=== PATIENT | male | born 1955 | race African-American/Black ===

== ENCOUNTER 2022-06-30 16:37 | Inpatient (IN) | payer OTHER ==
[2022-06-30 18:28] LABS: VENOUS BASE EXCESS 6.3 mmol/L (-2-2); VENOUS O2 SATURATION 86.3 % (70-80); VENOUS PCO2 47.5 mmHg (38-52); VENOUS PH 7.439 (7.310-7.410)
[2022-06-30 19:04] LABS: BASO % 1.2 % (0-2.0); EOS % 2.6 % (0-4.5); HEMATOCRIT 32.1 % (35.4-49); HEMOGLOBIN 10.5 GM/dL (11.7-16.9); LYMPH % 9.8 % (8-40); MCH 27.4 pg (25.7-33.7); MCHC 32.6 g/dl (32.0-35.9); MEAN CELL VOLUME 84.1 fl (80-96); MEAN PLT VOLUME 8.3 fl (7.5-11.1); MONO % 11.6 % (3.8-10.2); NEUT % 74.8 % (42.8-82.8); PLATELET COUNT 209 10^3/uL (134-434); RBC 3.82 M/mm3 (4.00-5.60); WHITE BLOOD COUNT 5.9 K/mm3 (4.0-10.0)
[2022-06-30 19:20] LABS: ACTIVATED PTT 40.3 SECONDS (25.2-36.5); INR 1.2 (0.83-1.09); PROTHROMBIN TIME (PATIENT) 13.9 SEC (9.7-13.0)
[2022-06-30 19:33] LABS: ALBUMIN 3.3 g/dl (3.4-5.0); CALCIUM 8.8 mg/dL (8.5-10.1)
[2022-06-30 19:34] LABS: BLOOD UREA NITROGEN 52.9 mg/dL (7-18)
[2022-06-30 19:38] LABS: BILIRUBIN,TOTAL 0.4 mg/dL (0.2-1); TOT PROT 7.9 g/dl (6.4-8.2)
[2022-07-01] MEDS ORDERED: hydrALAZINE HCL 20 MG/ML VIAL IVPUSH ONE (02:04)
[2022-07-01] MEDS ORDERED: hydrALAZINE HCL 20 MG/ML VIAL ONE (02:06)
[2022-07-01 07:35] VITALS: BMI 25.5
[2022-07-01] MEDS ORDERED: SODIUM CHLORIDE 250 ML IV PRN (10:42)
[2022-07-01] MEDS ORDERED: ACETAMINOPHEN 325 MG TABLET (FP) PO PRN (11:44)
[2022-07-01 12:29] LABS: EOS % 4.5 % (0-4.5); HEMATOCRIT 34.5 % (35.4-49); HEMOGLOBIN 11.4 GM/dL (11.7-16.9); LYMPH % 9.1 % (8-40); MCH 27.7 pg (25.7-33.7); MCHC 33.1 g/dl (32.0-35.9); MEAN CELL VOLUME 83.7 fl (80-96); MEAN PLT VOLUME 8.4 fl (7.5-11.1); MONO % 9.1 % (3.8-10.2); NEUT % 76.3 % (42.8-82.8); PLATELET COUNT 182 10^3/uL (134-434); RBC 4.13 M/mm3 (4.00-5.60); RDW 17.4 % (11.9-15.9); WHITE BLOOD COUNT 5.8 K/mm3 (4.0-10.0)
[2022-07-01 12:34] LABS: CHLORIDE 96 mmol/L (98-107); SODIUM 134 mmol/L (136-145)
[2022-07-01 12:37] LABS: CALCIUM 9.2 mg/dL (8.5-10.1)
[2022-07-01 12:38] LABS: ALBUMIN 3.4 g/dl (3.4-5.0); ANION GAP 6 MMOL/L (8-16); BLOOD UREA NITROGEN 61.4 mg/dL (7-18); CO2 32 mmol/L (21-32); GLUCOSE,RANDOM 88 mg/dL (74-106)
[2022-07-01 12:41] LABS: CHOLESTEROL 103 mg/dL (50-200); SGOT/AST 32 U/L (15-37); SGPT/ALT 43 U/L (13-61); TRIGLYCERIDES 87 mg/dL (0-150)
[2022-07-01 12:42] LABS: BILIRUBIN,TOTAL 0.5 mg/dL (0.2-1); LDL CHOLESTEROL (ONLY SJRH) 42 mg/dL (5-100); TOT PROT 8.2 g/dl (6.4-8.2)
[2022-07-01 12:43] LABS: HDL CHOLESTEROL 34 mg/dL (40-60)
[2022-07-01 12:44] LABS: ALK PHOS 124 U/L (45-117)
[2022-07-01 12:47] LABS: CREATININE 7.6 mg/dL (0.55-1.3)
[2022-07-01] MEDS: NIFEdipine E.R. 90 MG TABLET PO SCH (13:19)
[2022-07-01] MEDS: PANTOPRAZOLE 40 MG TABLET PO SCH (13:20)
[2022-07-01] MEDS: CARVEDILOL 25 MG TABLET (FP) PO SCH ×2 (13:20→21:23)
[2022-07-01] MEDS: DOCUSATE SODIUM 100 MG CAPSULE (FP) PO SCH ×2 (13:20→18:45)
[2022-07-01] MEDS: hydrALAZINE HCL 25 MG TABLET (FP) PO SCH ×3 (13:54→21:22)
[2022-07-01] MEDS ORDERED: SIMETHICONE 80 MG TAB.CHEW (FP) PO PRN (14:00)
[2022-07-01] MEDS ORDERED: SERTRALINE HCL 25 MG TABLET (FP) PO ONE (18:28)
[2022-07-01 21:17] VITALS: RESP 20
[2022-07-01] MEDS ORDERED: DOCUSATE SODIUM 100 MG CAPSULE (FP) PO SCH (21:55)
[2022-07-01] MEDS ORDERED: OLANZapine 10 MG TABLET PO SCH (22:00)
[2022-07-01] MEDS ORDERED: MELATONIN 1 MG TABLET PO SCH (22:00)
[2022-07-01] MEDS ORDERED: ATORVASTATIN CA 80 MG TABLET (FP) PO SCH (22:00)
[2022-07-01] MEDS ORDERED: GABAPENTIN 100 MG CAPSULE PO SCH (22:00)
[2022-07-01] MEDS ORDERED: LIDOCAINE PATCH REMOVAL MC SCH (22:00)
[2022-07-02] MEDS: DOCUSATE SODIUM 100 MG CAPSULE (FP) PO SCH ×2 (06:20→13:35)
[2022-07-02] MEDS: hydrALAZINE HCL 25 MG TABLET (FP) PO SCH ×2 (06:20→13:35)
[2022-07-02] MEDS ORDERED: LEVOTHYROXINE NA 100 MCG TABLET (FP) PO SCH (07:00)
[2022-07-02] MEDS: NIFEdipine E.R. 90 MG TABLET PO SCH (09:54)
[2022-07-02] MEDS: CARVEDILOL 25 MG TABLET (FP) PO SCH (09:54)
[2022-07-02] MEDS: PANTOPRAZOLE 40 MG TABLET PO SCH (09:54)
[2022-07-02] MEDS ORDERED: LEVOTHYROXINE NA 75 MCG TABLET (FP) PO SCH (10:00)
[2022-07-02] MEDS ORDERED: SERTRALINE HCL 25 MG TABLET (FP) PO SCH (10:00)
[2022-07-02] MEDS ORDERED: LIDOCAINE 5% TOPICAL PATCH TP SCH (10:00)
[2022-07-02 14:26] VITALS: BP 117/58; PULSE 59; TEMP 97.9
[2022-07-03] MEDS ORDERED: ASPIRIN 81 MG CHEWABLE TABLETS PO SCH (10:00)
== END 2022-07-02 15:46 | DRG 682 ==
LOC: JER 16:37 → JERBED 20:07 → J4W 07-01 06:28
PROVIDERS: ADMIT Internal Medicine; ATTEND Internal Medicine
PROC: 5A1D70Z Performance of Urinary Filtration, Intermittent, Less than 6 Hours Per Day (ICD-10-PCS; principal; 2022-07-01)
DX: I12.0 Hypertensive chronic kidney disease with stage 5 chronic kidney disease or end stage renal disease (principal); N18.6 End stage renal disease; I62.9 Nontraumatic intracranial hemorrhage, unspecified; G81.94 Hemiplegia, unspecified affecting left nondominant side; I31.39 Other pericardial effusion (noninflammatory); E87.70 Fluid overload, unspecified; E11.22 Type 2 diabetes mellitus with diabetic chronic kidney disease; M79.89 Other specified soft tissue disorders; E03.9 Hypothyroidism, unspecified; Z99.2 Dependence on renal dialysis; Z86.73 Personal history of transient ischemic attack (TIA), and cerebral infarction without residual deficits
CPT/HCPCS: 0241U-QW; 36415; 70450-TC; 70544-TC; 70551-TC; 71045-TC-FY; 74230-TC-FY; 80053; 80061; 82803; 82962; 84439; 84443; 84484; 85025; 85610; 85730; 86704; 86803; 87340; 92611-GN; 93005; 93010; 93971; 93971-TC; 99285-25

== ENCOUNTER 2022-07-11 16:06 | Inpatient (IN) | payer OTHER ==
[2022-07-11 17:28] LABS: VENOUS BASE EXCESS 3.8 mmol/L (-2-2); VENOUS O2 SATURATION 94.7 % (70-80); VENOUS PCO2 42.9 mmHg (38-52); VENOUS PH 7.439 (7.310-7.410)
[2022-07-11 17:32] LABS: BASO % 1.3 % (0-2.0); EOS % 5.3 % (0-4.5); HEMATOCRIT 32.6 % (35.4-49); HEMOGLOBIN 10.7 GM/dL (11.7-16.9); LYMPH % 10.7 % (8-40); MCH 27.1 pg (25.7-33.7); MEAN CELL VOLUME 82.2 fl (80-96); MEAN PLT VOLUME 8.4 fl (7.5-11.1); MONO % 13.8 % (3.8-10.2); NEUT % 68.9 % (42.8-82.8); PLATELET COUNT 130 10^3/uL (134-434); RBC 3.96 M/mm3 (4.00-5.60); RDW 16.4 % (11.9-15.9); WHITE BLOOD COUNT 4.6 K/mm3 (4.0-10.0)
[2022-07-11 17:37] LABS: INR 1.23 (0.83-1.09); PROTHROMBIN TIME (PATIENT) 14.2 SEC (9.7-13.0)
[2022-07-11 17:41] LABS: ACTIVATED PTT 37.6 SECONDS (25.2-36.5)
[2022-07-11 18:01] LABS: ALBUMIN 3.3 g/dl (3.4-5.0); CALCIUM 8.9 mg/dL (8.5-10.1)
[2022-07-11 18:02] LABS: BLOOD UREA NITROGEN 38.2 mg/dL (7-18)
[2022-07-11 18:05] LABS: CREATININE 5.1 mg/dL (0.55-1.3)
[2022-07-11 18:06] LABS: BILIRUBIN,TOTAL 0.4 mg/dL (0.2-1)
[2022-07-11] MEDS ORDERED: PIPERACILLIN/TAZOB 3.375 GM 3.375 GM in DEXTROSE 5%-WATER - 50 ML IVPB ONE (18:43)
[2022-07-11] MEDS ORDERED: VANCOMYCIN 1 GM in D5W (PRE-DOCKED) 1,000 MG/250 ML (RESTRICTED TO ID ONLY IVPB ONE (18:43)
[2022-07-11] MEDS ORDERED: PIPERACILLIN/TAZOB 3.375 GM 3.375 GM/50 ML BAG IVPB ONE (18:49)
[2022-07-11] MEDS ORDERED: hydrALAZINE HCL 50 MG TABLET (FP) PO ONE (19:25)
[2022-07-11] MEDS ORDERED: CARVEDILOL 6.25 MG TABLET (FP) PO ONE (19:26)
[2022-07-11] MEDS ORDERED: hydrALAZINE HCL 50 MG TABLET (FP) ONE (19:39)
[2022-07-11] MEDS ORDERED: CARVEDILOL 6.25 MG TABLET (FP) ONE (19:39)
[2022-07-11] MEDS ORDERED: VANCOMYCIN/WATER FOR INJ (PEG) 1,000 MG/200 ML BAG IVPB ONE (19:39)
[2022-07-12] MEDS ORDERED: MELATONIN 5 MG TABLETS PO ONE (01:11)
[2022-07-12] MEDS ORDERED: hydrALAZINE HCL 20 MG/ML VIAL IVPUSH ONE (02:58)
[2022-07-12] MEDS ORDERED: hydrALAZINE HCL 20 MG/ML VIAL ONE (02:59)
[2022-07-12 05:03] VITALS: BMI 28.0
[2022-07-12] MEDS: DOCUSATE SODIUM 100 MG CAPSULE (FP) PO SCH ×3 (05:46→21:56)
[2022-07-12] MEDS: hydrALAZINE HCL 25 MG TABLET (FP) PO SCH ×3 (05:46→21:57)
[2022-07-12] MEDS: LEVOTHYROXINE NA 100 MCG TABLET (FP) PO SCH (06:12)
[2022-07-12] MEDS ORDERED: PIPERACILLIN/TAZOB 2.25 GM 2.25 GM in DEXTROSE 5%-WATER - 50 ML IVPB SCH (09:00)
[2022-07-12 09:36] LABS: HEMOGLOBIN 10.1 GM/dL (11.7-16.9); MCH 27.5 pg (25.7-33.7); MCHC 33.8 g/dl (32.0-35.9); MEAN CELL VOLUME 81.5 fl (80-96); MEAN PLT VOLUME 8.8 fl (7.5-11.1); PLATELET COUNT 111 10^3/uL (134-434); RBC 3.68 M/mm3 (4.00-5.60); RDW 16.2 % (11.9-15.9); WHITE BLOOD COUNT 5.3 K/mm3 (4.0-10.0)
[2022-07-12] MEDS: PANTOPRAZOLE 40 MG TABLET PO SCH (09:55)
[2022-07-12] MEDS ORDERED: VANCOMYCIN 1 GM in D5W (PRE-DOCKED) 1,000 MG/250 ML (RESTRICTED TO ID ONLY IVPB SCH (10:00)
[2022-07-12 10:03] LABS: CALCIUM 9.1 mg/dL (8.5-10.1)
[2022-07-12] MEDS: ASPIRIN 81 MG CHEWABLE TABLETS PO SCH (10:03)
[2022-07-12] MEDS: CARVEDILOL 25 MG TABLET (FP) PO SCH ×2 (10:03→21:57)
[2022-07-12] MEDS: POLYETHYLENE GLYCOL (HEALTHYLAX) 3350 17 GM PACKET PO SCH (10:03)
[2022-07-12] MEDS: NIFEdipine E.R. 90 MG TABLET PO SCH (10:03)
[2022-07-12 10:07] LABS: CREATININE 5.5 mg/dL (0.55-1.3)
[2022-07-12 11:40] LABS: INR 1.26 (0.83-1.09); PROTHROMBIN TIME (PATIENT) 14.6 SEC (9.7-13.0)
[2022-07-12] MEDS ORDERED: VANCOMYCIN/WATER FOR INJ (PEG) 1,000 MG/200 ML BAG IVPB ONE (12:19)
[2022-07-12] MEDS ORDERED: SODIUM CHLORIDE 250 ML IV PRN (14:40)
[2022-07-12] MEDS: PIPERACILLIN/TAZOB 2.25 GM 2.25 GM in DEXTROSE 5%-WATER - 50 ML IVPB SCH (18:40)
[2022-07-12] MEDS ORDERED: VANCOMYCIN/WATER FOR INJ (PEG) 1,000 MG/200 ML BAG IVPB SCH (20:00)
[2022-07-12] MEDS: ATORVASTATIN CA 80 MG TABLET (FP) PO SCH (21:56)
[2022-07-12] MEDS: OLANZapine 10 MG TABLET PO SCH (21:56)
[2022-07-12] MEDS: MELATONIN 1 MG TABLET PO SCH (21:56)
[2022-07-12] MEDS: GABAPENTIN 100 MG CAPSULE PO SCH (21:57)
[2022-07-13] MEDS: PIPERACILLIN/TAZOB 2.25 GM 2.25 GM in DEXTROSE 5%-WATER - 50 ML IVPB SCH ×3 (01:59→17:48)
[2022-07-13] MEDS: hydrALAZINE HCL 25 MG TABLET (FP) PO SCH ×3 (06:23→21:30)
[2022-07-13] MEDS: LEVOTHYROXINE NA 100 MCG TABLET (FP) PO SCH (06:24)
[2022-07-13] MEDS: DOCUSATE SODIUM 100 MG CAPSULE (FP) PO SCH ×3 (06:24→21:30)
[2022-07-13] MEDS: ASPIRIN 81 MG CHEWABLE TABLETS PO SCH (09:27)
[2022-07-13] MEDS: NIFEdipine E.R. 90 MG TABLET PO SCH (09:27)
[2022-07-13] MEDS: SERTRALINE HCL 25 MG TABLET (FP) PO SCH (09:27)
[2022-07-13] MEDS: FOLIC ACID 1 MG TABLET (FP) PO SCH (09:27)
[2022-07-13] MEDS: CARVEDILOL 25 MG TABLET (FP) PO SCH ×2 (09:27→21:30)
[2022-07-13] MEDS: POLYETHYLENE GLYCOL (HEALTHYLAX) 3350 17 GM PACKET PO SCH (09:27)
[2022-07-13] MEDS: PANTOPRAZOLE 40 MG TABLET PO SCH (09:27)
[2022-07-13] MEDS ORDERED: PIPERACILLIN/TAZOBACTAM 2.25 GM VIAL IVPB ONE (17:37)
[2022-07-13] MEDS: GABAPENTIN 100 MG CAPSULE PO SCH (21:30)
[2022-07-13] MEDS: MELATONIN 1 MG TABLET PO SCH (21:30)
[2022-07-13] MEDS: ATORVASTATIN CA 80 MG TABLET (FP) PO SCH (21:30)
[2022-07-13] MEDS: OLANZapine 10 MG TABLET PO SCH (21:30)
[2022-07-14] MEDS: PIPERACILLIN/TAZOB 2.25 GM 2.25 GM in DEXTROSE 5%-WATER - 50 ML IVPB SCH ×3 (01:34→17:38)
[2022-07-14] MEDS: hydrALAZINE HCL 25 MG TABLET (FP) PO SCH ×3 (06:10→21:31)
[2022-07-14] MEDS: LEVOTHYROXINE NA 100 MCG TABLET (FP) PO SCH (06:10)
[2022-07-14] MEDS: DOCUSATE SODIUM 100 MG CAPSULE (FP) PO SCH ×3 (06:10→21:31)
[2022-07-14] MEDS: NIFEdipine E.R. 90 MG TABLET PO SCH (10:14)
[2022-07-14] MEDS: FOLIC ACID 1 MG TABLET (FP) PO SCH (10:14)
[2022-07-14] MEDS: CARVEDILOL 25 MG TABLET (FP) PO SCH ×2 (10:14→21:31)
[2022-07-14] MEDS: ASPIRIN 81 MG CHEWABLE TABLETS PO SCH (10:14)
[2022-07-14] MEDS: PANTOPRAZOLE 40 MG TABLET PO SCH (10:14)
[2022-07-14] MEDS: SERTRALINE HCL 25 MG TABLET (FP) PO SCH (10:14)
[2022-07-14] MEDS: POLYETHYLENE GLYCOL (HEALTHYLAX) 3350 17 GM PACKET PO SCH (10:15)
[2022-07-14] MEDS ORDERED: SODIUM CHLORIDE 250 ML IV PRN (10:42)
[2022-07-14] MEDS ORDERED: HEPARIN NA (PORCINE) 5,000 UNITS/ML 1ML VIAL IVPUSH ONE (11:00)
[2022-07-14] MEDS ORDERED: EPOETIN ALFA-EPBX 3,000 UNIT/ML VIAL IVPUSH ONE (11:00)
[2022-07-14 12:25] LABS: HEMATOCRIT 25.5 % (35.4-49); HEMOGLOBIN 8.5 GM/dL (11.7-16.9); MCH 27.1 pg (25.7-33.7); MCHC 33.2 g/dl (32.0-35.9); MEAN CELL VOLUME 81.5 fl (80-96); PLATELET COUNT 98 10^3/uL (134-434); RBC 3.13 M/mm3 (4.00-5.60); RDW 16.4 % (11.9-15.9); WHITE BLOOD COUNT 5.7 K/mm3 (4.0-10.0)
[2022-07-14 12:36] LABS: CALCIUM 8.7 mg/dL (8.5-10.1)
[2022-07-14 12:37] LABS: BLOOD UREA NITROGEN 44.5 mg/dL (7-18)
[2022-07-14 12:40] LABS: CREATININE 5.5 mg/dL (0.55-1.3)
[2022-07-14] MEDS: MELATONIN 1 MG TABLET PO SCH (21:31)
[2022-07-14] MEDS: OLANZapine 10 MG TABLET PO SCH (21:31)
[2022-07-14] MEDS: ATORVASTATIN CA 80 MG TABLET (FP) PO SCH (21:32)
[2022-07-14] MEDS: GABAPENTIN 100 MG CAPSULE PO SCH (21:41)
[2022-07-15] MEDS: PIPERACILLIN/TAZOB 2.25 GM 2.25 GM in DEXTROSE 5%-WATER - 50 ML IVPB SCH ×3 (02:54→17:18)
[2022-07-15] MEDS: hydrALAZINE HCL 25 MG TABLET (FP) PO SCH ×3 (06:37→21:46)
[2022-07-15] MEDS: LEVOTHYROXINE NA 100 MCG TABLET (FP) PO SCH (06:37)
[2022-07-15] MEDS: DOCUSATE SODIUM 100 MG CAPSULE (FP) PO SCH ×3 (06:37→21:46)
[2022-07-15] MEDS: SERTRALINE HCL 25 MG TABLET (FP) PO SCH (09:18)
[2022-07-15] MEDS: ASPIRIN 81 MG CHEWABLE TABLETS PO SCH (09:18)
[2022-07-15] MEDS: CARVEDILOL 25 MG TABLET (FP) PO SCH ×2 (09:18→21:46)
[2022-07-15] MEDS: PANTOPRAZOLE 40 MG TABLET PO SCH (09:18)
[2022-07-15] MEDS: POLYETHYLENE GLYCOL (HEALTHYLAX) 3350 17 GM PACKET PO SCH (09:18)
[2022-07-15] MEDS: NIFEdipine E.R. 90 MG TABLET PO SCH (09:18)
[2022-07-15] MEDS: FOLIC ACID 1 MG TABLET (FP) PO SCH (09:18)
[2022-07-15] MEDS: VANCOMYCIN/WATER FOR INJ (PEG) 1,000 MG/200 ML BAG IVPB ONE ×2 (16:51→17:15)
[2022-07-15] MEDS: MELATONIN 1 MG TABLET PO SCH (21:45)
[2022-07-15] MEDS: GABAPENTIN 100 MG CAPSULE PO SCH (21:45)
[2022-07-15] MEDS: ATORVASTATIN CA 80 MG TABLET (FP) PO SCH (21:45)
[2022-07-15] MEDS: OLANZapine 10 MG TABLET PO SCH (21:46)
[2022-07-16] MEDS: PIPERACILLIN/TAZOB 2.25 GM 2.25 GM in DEXTROSE 5%-WATER - 50 ML IVPB SCH ×3 (02:19→17:53)
[2022-07-16] MEDS: hydrALAZINE HCL 25 MG TABLET (FP) PO SCH ×3 (06:21→21:02)
[2022-07-16] MEDS: DOCUSATE SODIUM 100 MG CAPSULE (FP) PO SCH ×3 (06:21→21:02)
[2022-07-16] MEDS: LEVOTHYROXINE NA 100 MCG TABLET (FP) PO SCH (06:21)
[2022-07-16] MEDS ORDERED: SODIUM CHLORIDE 250 ML IV PRN (07:23)
[2022-07-16] MEDS: ASPIRIN 81 MG CHEWABLE TABLETS PO SCH (09:42)
[2022-07-16] MEDS: CARVEDILOL 25 MG TABLET (FP) PO SCH ×2 (09:42→21:02)
[2022-07-16] MEDS: POLYETHYLENE GLYCOL (HEALTHYLAX) 3350 17 GM PACKET PO SCH (09:43)
[2022-07-16] MEDS: NIFEdipine E.R. 90 MG TABLET PO SCH (09:43)
[2022-07-16] MEDS: PANTOPRAZOLE 40 MG TABLET PO SCH (09:43)
[2022-07-16] MEDS: SERTRALINE HCL 25 MG TABLET (FP) PO SCH (09:43)
[2022-07-16] MEDS: FOLIC ACID 1 MG TABLET (FP) PO SCH (09:43)
[2022-07-16 09:58] LABS: HEMATOCRIT 27.3 % (35.4-49); HEMOGLOBIN 9.1 GM/dL (11.7-16.9); MCH 27.1 pg (25.7-33.7); MCHC 33.4 g/dl (32.0-35.9); MEAN PLT VOLUME 8.6 fl (7.5-11.1); PLATELET COUNT 110 10^3/uL (134-434); RBC 3.37 M/mm3 (4.00-5.60); RDW 16.2 % (11.9-15.9); WHITE BLOOD COUNT 5.5 K/mm3 (4.0-10.0)
[2022-07-16] MEDS ORDERED: EPOETIN ALFA-EPBX 10,000 UNIT/ML VIAL IVPUSH ONE (10:00)
[2022-07-16 10:23] LABS: CALCIUM 8.4 mg/dL (8.5-10.1)
[2022-07-16 10:24] LABS: BLOOD UREA NITROGEN 45.3 mg/dL (7-18)
[2022-07-16 10:27] LABS: CREATININE 4.9 mg/dL (0.55-1.3)
[2022-07-16] MEDS: OLANZapine 10 MG TABLET PO SCH (21:02)
[2022-07-16] MEDS: GABAPENTIN 100 MG CAPSULE PO SCH (21:02)
[2022-07-16] MEDS: ATORVASTATIN CA 80 MG TABLET (FP) PO SCH (21:02)
[2022-07-16] MEDS: MELATONIN 1 MG TABLET PO SCH (21:57)
[2022-07-17] MEDS: PIPERACILLIN/TAZOB 2.25 GM 2.25 GM in DEXTROSE 5%-WATER - 50 ML IVPB SCH ×2 (01:54→11:29)
[2022-07-17] MEDS: LEVOTHYROXINE NA 100 MCG TABLET (FP) PO SCH (06:11)
[2022-07-17] MEDS: hydrALAZINE HCL 25 MG TABLET (FP) PO SCH ×3 (06:11→21:18)
[2022-07-17] MEDS: DOCUSATE SODIUM 100 MG CAPSULE (FP) PO SCH ×3 (06:12→21:17)
[2022-07-17] MEDS: PANTOPRAZOLE 40 MG TABLET PO SCH (09:01)
[2022-07-17] MEDS: SERTRALINE HCL 25 MG TABLET (FP) PO SCH (09:01)
[2022-07-17] MEDS: ASPIRIN 81 MG CHEWABLE TABLETS PO SCH (09:01)
[2022-07-17] MEDS: CARVEDILOL 25 MG TABLET (FP) PO SCH ×2 (09:01→21:17)
[2022-07-17] MEDS: FOLIC ACID 1 MG TABLET (FP) PO SCH (09:01)
[2022-07-17] MEDS: POLYETHYLENE GLYCOL (HEALTHYLAX) 3350 17 GM PACKET PO SCH (09:01)
[2022-07-17] MEDS: NIFEdipine E.R. 90 MG TABLET PO SCH (09:01)
[2022-07-17] MEDS ORDERED: HEPARIN NA (PORCINE) 5,000 UNITS/ML 1ML VIAL ONE (12:13)
[2022-07-17] MEDS ORDERED: LIDOCAINE HCL 1%, 10 MG/ML (10ML VIAL) MDV ONE (12:14)
[2022-07-17 12:39] LABS: EOS % 4.5 % (0-4.5); HEMATOCRIT 28.9 % (35.4-49); HEMOGLOBIN 9.3 GM/dL (11.7-16.9); MCH 26.6 pg (25.7-33.7); MCHC 32.2 g/dl (32.0-35.9); MEAN CELL VOLUME 82.6 fl (80-96); MEAN PLT VOLUME 8.2 fl (7.5-11.1); NEUT % 71.5 % (42.8-82.8); PLATELET COUNT 116 10^3/uL (134-434); RDW 16.5 % (11.9-15.9)
[2022-07-17 12:47] LABS: INR 1.27 (0.83-1.09); PROTHROMBIN TIME (PATIENT) 14.7 SEC (9.7-13.0)
[2022-07-17 12:57] LABS: CALCIUM 8.9 mg/dL (8.5-10.1)
[2022-07-17 12:58] LABS: BLOOD UREA NITROGEN 38.4 mg/dL (7-18)
[2022-07-17 13:01] LABS: CREATININE 3.8 mg/dL (0.55-1.3)
[2022-07-17] MEDS ORDERED: MIDAZOLAM HCL 2 MG/2 ML SINGLE DOSE VIAL ONE (13:11)
[2022-07-17] MEDS ORDERED: LIDOCAINE 1% P/F 10 MG/ML VIAL INF ONE (13:32)
[2022-07-17] MEDS ORDERED: oxyCODONE HCL 5 MG TABLET PO PRN (14:13)
[2022-07-17] MEDS ORDERED: PIPERACILLIN/TAZOB 2.25 GM 2.25 GM in DEXTROSE 5%-WATER - 50 ML IVPB SCH (18:00)
[2022-07-17] MEDS: OLANZapine 10 MG TABLET PO SCH (21:17)
[2022-07-17] MEDS: GABAPENTIN 100 MG CAPSULE PO SCH (21:17)
[2022-07-17] MEDS: MELATONIN 1 MG TABLET PO SCH (21:17)
[2022-07-17] MEDS: ATORVASTATIN CA 80 MG TABLET (FP) PO SCH (21:18)
[2022-07-18] MEDS: PIPERACILLIN/TAZOB 2.25 GM 2.25 GM in DEXTROSE 5%-WATER - 50 ML IVPB SCH ×2 (01:19→15:02)
[2022-07-18] MEDS: hydrALAZINE HCL 25 MG TABLET (FP) PO SCH ×3 (06:27→21:27)
[2022-07-18] MEDS: DOCUSATE SODIUM 100 MG CAPSULE (FP) PO SCH ×3 (06:27→21:27)
[2022-07-18] MEDS: LEVOTHYROXINE NA 100 MCG TABLET (FP) PO SCH (06:28)
[2022-07-18] MEDS ORDERED: SODIUM CHLORIDE 250 ML IV PRN (08:00)
[2022-07-18] MEDS ORDERED: EPOETIN ALFA-EPBX 4,000 UNIT/ML VIAL SQ ONE (09:00)
[2022-07-18] MEDS: ASPIRIN 81 MG CHEWABLE TABLETS PO SCH (14:35)
[2022-07-18] MEDS: SERTRALINE HCL 25 MG TABLET (FP) PO SCH (14:35)
[2022-07-18] MEDS: NIFEdipine E.R. 90 MG TABLET PO SCH (14:36)
[2022-07-18] MEDS: PANTOPRAZOLE 40 MG TABLET PO SCH (14:36)
[2022-07-18] MEDS: FOLIC ACID 1 MG TABLET (FP) PO SCH (14:36)
[2022-07-18] MEDS: POLYETHYLENE GLYCOL (HEALTHYLAX) 3350 17 GM PACKET PO SCH (14:36)
[2022-07-18] MEDS: CARVEDILOL 25 MG TABLET (FP) PO SCH ×2 (15:02→21:27)
[2022-07-18] MEDS: GABAPENTIN 100 MG CAPSULE PO SCH (21:27)
[2022-07-18] MEDS: ATORVASTATIN CA 80 MG TABLET (FP) PO SCH (21:27)
[2022-07-18] MEDS: OLANZapine 10 MG TABLET PO SCH (21:28)
[2022-07-18] MEDS: MELATONIN 1 MG TABLET PO SCH (21:28)
[2022-07-19] MEDS: hydrALAZINE HCL 25 MG TABLET (FP) PO SCH ×3 (05:56→22:02)
[2022-07-19] MEDS: DOCUSATE SODIUM 100 MG CAPSULE (FP) PO SCH ×3 (05:56→22:03)
[2022-07-19] MEDS: LEVOTHYROXINE NA 100 MCG TABLET (FP) PO SCH (06:02)
[2022-07-19] MEDS: PANTOPRAZOLE 40 MG TABLET PO SCH (09:55)
[2022-07-19] MEDS: POLYETHYLENE GLYCOL (HEALTHYLAX) 3350 17 GM PACKET PO SCH (09:55)
[2022-07-19] MEDS: CARVEDILOL 25 MG TABLET (FP) PO SCH ×2 (09:55→22:03)
[2022-07-19] MEDS: SERTRALINE HCL 25 MG TABLET (FP) PO SCH (09:55)
[2022-07-19] MEDS: NIFEdipine E.R. 90 MG TABLET PO SCH (09:55)
[2022-07-19] MEDS: FOLIC ACID 1 MG TABLET (FP) PO SCH (09:56)
[2022-07-19] MEDS: ASPIRIN 81 MG CHEWABLE TABLETS PO SCH (09:56)
[2022-07-19] MEDS ORDERED: FUROSEMIDE 100 MG/10 ML INJECTABLE VIAL IVPB ONE (12:15)
[2022-07-19 12:26] LABS: BASO % 1.4 % (0-2.0); EOS % 3.7 % (0-4.5); HEMATOCRIT 25.3 % (35.4-49); HEMOGLOBIN 8.4 GM/dL (11.7-16.9); LYMPH % 8.4 % (8-40); MCH 26.9 pg (25.7-33.7); MCHC 33.3 g/dl (32.0-35.9); MEAN CELL VOLUME 80.7 fl (80-96); MEAN PLT VOLUME 7.7 fl (7.5-11.1); MONO % 11.2 % (3.8-10.2); NEUT % 75.3 % (42.8-82.8); PLATELET COUNT 115 10^3/uL (134-434); RBC 3.14 M/mm3 (4.00-5.60); RDW 16.2 % (11.9-15.9); WHITE BLOOD COUNT 5.9 K/mm3 (4.0-10.0)
[2022-07-19 12:52] LABS: CALCIUM 8.7 mg/dL (8.5-10.1)
[2022-07-19 12:53] LABS: ALBUMIN 2.8 g/dl (3.4-5.0); BLOOD UREA NITROGEN 40.3 mg/dL (7-18)
[2022-07-19 12:56] LABS: CREATININE 4.2 mg/dL (0.55-1.3)
[2022-07-19 12:58] LABS: BILIRUBIN,TOTAL 0.4 mg/dL (0.2-1); TOT PROT 7.3 g/dl (6.4-8.2)
[2022-07-19 13:32] LABS: EPI CELLS 6 /uL (0-25.1); HYALINE CASTS 0 /uL (0-3.1); PH,URINE 8.5 (5.0-8.0); URINE APPEARANCE CLEAR; URINE BACTERIA 11 /uL (0-1359); URINE BILIRUBIN NEGATIVE (NEGATIVE); URINE COLOR YELLOW; URINE GLUCOSE (UA) NEGATIVE (NEGATIVE); URINE KETONE NEGATIVE (NEGATIVE); URINE LEUK ESTERASE NEGATIVE (NEGATIVE); URINE NITRITE NEGATIVE (NEGATIVE); URINE PROTEIN 3+ (NEGATIVE); URINE RBC 24 /uL (0-23.9); URINE UROBILINOGEN 0.2 mg/dL (0.2-1.0); URINE WBC 13 /uL (0-25.8)
[2022-07-19] MEDS: OLANZapine 10 MG TABLET PO SCH (22:03)
[2022-07-19] MEDS: GABAPENTIN 100 MG CAPSULE PO SCH (22:03)
[2022-07-19] MEDS: MELATONIN 1 MG TABLET PO SCH (22:04)
[2022-07-19] MEDS: ATORVASTATIN CA 80 MG TABLET (FP) PO SCH (22:04)
[2022-07-20] MEDS: LEVOTHYROXINE NA 100 MCG TABLET (FP) PO SCH (06:55)
[2022-07-20] MEDS: DOCUSATE SODIUM 100 MG CAPSULE (FP) PO SCH ×3 (06:55→21:57)
[2022-07-20] MEDS: hydrALAZINE HCL 25 MG TABLET (FP) PO SCH ×3 (06:55→21:57)
[2022-07-20] MEDS: PANTOPRAZOLE 40 MG TABLET PO SCH (09:22)
[2022-07-20] MEDS: SERTRALINE HCL 25 MG TABLET (FP) PO SCH (09:22)
[2022-07-20] MEDS: NIFEdipine E.R. 90 MG TABLET PO SCH (09:22)
[2022-07-20] MEDS: CARVEDILOL 25 MG TABLET (FP) PO SCH ×2 (09:22→21:57)
[2022-07-20] MEDS: FOLIC ACID 1 MG TABLET (FP) PO SCH (09:22)
[2022-07-20] MEDS: ASPIRIN 81 MG CHEWABLE TABLETS PO SCH (09:22)
[2022-07-20] MEDS: POLYETHYLENE GLYCOL (HEALTHYLAX) 3350 17 GM PACKET PO SCH (09:22)
[2022-07-20] MEDS: AMPICILLIN NA/SULBACTAM NA 1.5 GM in DEXTROSE 5%-WATER 100 ML IVPB SCH ×2 (10:50→17:28)
[2022-07-20] MEDS: ATORVASTATIN CA 80 MG TABLET (FP) PO SCH (21:57)
[2022-07-20] MEDS: MELATONIN 1 MG TABLET PO SCH (21:57)
[2022-07-20] MEDS: OLANZapine 10 MG TABLET PO SCH (21:57)
[2022-07-20] MEDS: GABAPENTIN 100 MG CAPSULE PO SCH (21:57)
[2022-07-21] MEDS: AMPICILLIN NA/SULBACTAM NA 1.5 GM in DEXTROSE 5%-WATER 100 ML IVPB SCH ×2 (01:38→09:55)
[2022-07-21 04:20] VITALS: RESP 18
[2022-07-21] MEDS: hydrALAZINE HCL 25 MG TABLET (FP) PO SCH ×3 (06:30→21:23)
[2022-07-21] MEDS: DOCUSATE SODIUM 100 MG CAPSULE (FP) PO SCH ×3 (06:30→21:23)
[2022-07-21] MEDS: LEVOTHYROXINE NA 100 MCG TABLET (FP) PO SCH (06:30)
[2022-07-21] MEDS ORDERED: EPOETIN ALFA 10,000 UNIT/1 ML VIAL IVPUSH ONE (08:30)
[2022-07-21] MEDS: CARVEDILOL 25 MG TABLET (FP) PO SCH ×2 (09:56→21:24)
[2022-07-21] MEDS: ASPIRIN 81 MG CHEWABLE TABLETS PO SCH (09:56)
[2022-07-21] MEDS: FOLIC ACID 1 MG TABLET (FP) PO SCH (09:56)
[2022-07-21] MEDS: POLYETHYLENE GLYCOL (HEALTHYLAX) 3350 17 GM PACKET PO SCH (09:56)
[2022-07-21] MEDS: PANTOPRAZOLE 40 MG TABLET PO SCH (09:57)
[2022-07-21] MEDS: SERTRALINE HCL 25 MG TABLET (FP) PO SCH (09:57)
[2022-07-21] MEDS: NIFEdipine E.R. 90 MG TABLET PO SCH (09:57)
[2022-07-21] MEDS ORDERED: AMINO ACIDS/PROTEIN HYDROLYS 30 ML LIQUID.PKT PO SCH (14:00)
[2022-07-21 14:23] VITALS: BP 143/69
[2022-07-21] MEDS ORDERED: VITAMIN B COMP W-C 1 EA TABLET (NEPHRO-VITE) PO SCH (16:00)
[2022-07-21] MEDS: GABAPENTIN 100 MG CAPSULE PO SCH (21:22)
[2022-07-21] MEDS: ATORVASTATIN CA 80 MG TABLET (FP) PO SCH (21:22)
[2022-07-21] MEDS: OLANZapine 10 MG TABLET PO SCH (21:23)
[2022-07-21] MEDS: MELATONIN 1 MG TABLET PO SCH (21:23)
[2022-07-21 23:43] VITALS: PULSE 80; TEMP 99
== END 2022-07-22 02:30 | DRG 252 ==
LOC: JER 16:06 → JERBED 07-12 02:29 → J6S 07-12 04:08 → UNDODISIN 07-21 21:25
PROVIDERS: ADMIT Internal Medicine; ATTEND Internal Medicine
PROC: 057Y3ZZ Dilation of Upper Vein, Percutaneous Approach (ICD-10-PCS; principal; 2022-07-17 12:00)
PROC: 5A1D70Z Performance of Urinary Filtration, Intermittent, Less than 6 Hours Per Day (ICD-10-PCS; 2022-07-21)
DX: T82.7XXA Infection and inflammatory reaction due to other cardiac and vascular devices, implants and grafts, initial encounter (principal); J18.9 Pneumonia, unspecified organism; N18.6 End stage renal disease; I12.0 Hypertensive chronic kidney disease with stage 5 chronic kidney disease or end stage renal disease; I69.354 Hemiplegia and hemiparesis following cerebral infarction affecting left non-dominant side; E11.9 Type 2 diabetes mellitus without complications; Y83.9 Surgical procedure, unspecified as the cause of abnormal reaction of the patient, or of later complication, without mention of misadventure at the time of the procedure; E03.9 Hypothyroidism, unspecified; Z99.2 Dependence on renal dialysis
CPT/HCPCS: 0241U-QW; 36415; 71045-TC-FY; 76000-TC-FY; 80048; 80053; 81003; 82550; 82553; 82803; 82962; 83605; 84484; 85025; 85027; 85610; 85730; 86803; 86900; 87040; 87086; 87340; 93005; 93010; 93971; 94760; 99285-25; C9803-CS; G0480; J0885; J1644; Q5106; U0003; U0005

== ENCOUNTER 2022-08-22 01:14 | Emergency (ER) | payer OTHER ==
[2022-08-22] MEDS ORDERED: RAPID SEQUENCE INTUBATION KIT NR ONE (01:23)
[2022-08-22 01:29] VITALS: BMI 28.4
[2022-08-22] MEDS ORDERED: PROPOFOL 1,000,000 MCG/100 ML VIAL ONE (01:30)
[2022-08-22] MEDS ORDERED: MIDAZOLAM HCL 2 MG/2 ML SINGLE DOSE VIAL ONE (01:38)
[2022-08-22] MEDS ORDERED: MIDAZOLAM HCL 2 MG/2 ML SINGLE DOSE VIAL IVPUSH ONE (01:39)
[2022-08-22] MEDS ORDERED: ROCURONIUM BROMIDE 50 MG/5 ML VIAL IV ONE (01:40)
[2022-08-22] MEDS ORDERED: ETOMIDATE 40 MG/20 ML VIAL IVPUSH ONE (01:40)
[2022-08-22] MEDS ORDERED: PROPOFOL 1,000,000 MCG/100 ML VIAL IVPB SCH (01:45)
[2022-08-22 01:49] LABS: VENOUS BASE EXCESS -0.8 mmol/L (-2-2); VENOUS O2 SATURATION 95.7 % (70-80); VENOUS PCO2 49.3 mmHg (38-52); VENOUS PH 7.33 (7.310-7.410)
[2022-08-22 01:52] LABS: BASO % 0.7 % (0-2.0); EOS % 0.6 % (0-4.5); HEMATOCRIT 27.7 % (35.4-49); HEMOGLOBIN 9.2 GM/dL (11.7-16.9); MCH 26.9 pg (25.7-33.7); MCHC 33.3 g/dl (32.0-35.9); MEAN CELL VOLUME 80.8 fl (80-96); MEAN PLT VOLUME 8.4 fl (7.5-11.1); MONO % 7.2 % (3.8-10.2); NEUT % 88.5 % (42.8-82.8); PLATELET COUNT 146 10^3/uL (134-434); RBC 3.43 M/mm3 (4.00-5.60); WHITE BLOOD COUNT 13.9 K/mm3 (4.0-10.0)
[2022-08-22 02:03] LABS: INR 1.35 (0.83-1.09); PROTHROMBIN TIME (PATIENT) 15.6 SEC (9.7-13.0)
[2022-08-22 02:05] LABS: ACTIVATED PTT 35.7 SECONDS (25.2-36.5)
[2022-08-22] MEDS ORDERED: MANNITOL 25% 12.5 GM/50 ML VIAL IVPB ONE (02:05)
[2022-08-22 02:08] LABS: CHLORIDE 98 mmol/L (98-107); POTASSIUM 3.9 mmol/L (3.5-5.1); SODIUM 134 mmol/L (136-145)
[2022-08-22] MEDS ORDERED: levETIRAcetam 500 MG/5 ML INJECTION VIAL IVPB ONE (02:08)
[2022-08-22 02:11] LABS: ALBUMIN 3.6 g/dl (3.4-5.0); ANION GAP 10 MMOL/L (8-16); BLOOD UREA NITROGEN 20.7 mg/dL (7-18); CO2 26 mmol/L (21-32); GLUCOSE,RANDOM 186 mg/dL (74-106)
[2022-08-22 02:14] LABS: CHOLESTEROL 75 mg/dL (50-200); CREATININE 3.5 mg/dL (0.55-1.3); SGOT/AST 34 U/L (15-37); SGPT/ALT 31 U/L (13-61)
[2022-08-22 02:15] LABS: BILIRUBIN,TOTAL 0.9 mg/dL (0.2-1); LDL CHOLESTEROL (ONLY SJRH) 32 mg/dL (5-100); TOT PROT 8.6 g/dl (6.4-8.2)
[2022-08-22] MEDS ORDERED: MANNITOL IVPB ONE (02:15)
[2022-08-22] MEDS ORDERED: NICARDIPINE 25 MG in DEXTROSE 5%-WATER - 240 ML IVPB SCH (02:15)
[2022-08-22 02:17] LABS: ALK PHOS 152 U/L (45-117); HDL CHOLESTEROL 32 mg/dL (40-60)
[2022-08-22] MEDS ORDERED: niCARdipine HCL 25 MG/10 ML AMPUL IVPB ONE (02:20)
[2022-08-22 02:49] VITALS: RESP 18
[2022-08-22 02:51] VITALS: BP 166/76; PULSE 100
[2022-08-22] MEDS ORDERED: levETIRAcetam 500 MG/5 ML INJECTION VIAL IVPB SCH (10:00)
== END 2022-08-22 03:11 | disposition short-term general hospital (02) ==
LOC: JER 01:14
PROC: 3E033GC Introduction of Other Therapeutic Substance into Peripheral Vein, Percutaneous Approach (ICD-10-PCS; principal; 2022-08-22)
PROC: 3E033GC Introduction of Other Therapeutic Substance into Peripheral Vein, Percutaneous Approach (ICD-10-PCS; 2022-08-22)
PROC: 3E033GC Introduction of Other Therapeutic Substance into Peripheral Vein, Percutaneous Approach (ICD-10-PCS; 2022-08-22)
PROC: 3E033GC Introduction of Other Therapeutic Substance into Peripheral Vein, Percutaneous Approach (ICD-10-PCS; 2022-08-22)
PROC: 06HN33Z Insertion of Infusion Device into Left Femoral Vein, Percutaneous Approach (ICD-10-PCS; 2022-08-22)
PROC: 0BH17EZ Insertion of Endotracheal Airway into Trachea, Via Natural or Artificial Opening (ICD-10-PCS; 2022-08-22)
DX: I62.9 Nontraumatic intracranial hemorrhage, unspecified (principal); Z20.822 Contact with and (suspected) exposure to COVID-19
CPT/HCPCS: 0241U-QW; 36415; 70450-TC; 80053; 80061; 80307; 82140; 82550; 82553; 82803; 82962; 83036; 84484; 85025; 85610; 85730; 86850; 86900; 86901; 87040; 99285-25